=== PATIENT | female | born 1980 | race Hispanic/Latino ===

== ENCOUNTER 2016-02-28 17:27 | Emergency (ER) ==
[2016-02-28] MEDS ORDERED: NORCO-10 PO ONE (19:21)
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
[2016-02-28 20:39] VITALS: BP 160/80
--- NOTE | 2016-02-29 08:24 | Diag Imaging Result Document ---
PROCEDURE NAME: HEAD W/O CONTRAST - 02/28/2016 CT HEAD WITHOUT CONTRAST: A dose-reduction protocol was use. COMPARISON: No comparison exam. FINDINGS: There is no evidence of intracranial hemorrhage, mass effect, midline shift, or hydrocephalus. There is no evidence of infarct, although acute infarcts may not be immediately visible. There is no evidence of skull fracture. There is a small amount of fluid noted in the bilateral maxillary sinuses and the sphenoid sinus. IMPRESSION: 1. No evidence of intracranial injury. No intracranial hemorrhage or mass effect. 2. Small amount of fluid in bilateral maxillary sinuses and sphenoid sinus.
--- NOTE | 2016-02-29 08:25 | Diag Imaging Result Document ---
PROCEDURE NAME: PELVIS - 02/28/2016 PELVIS: COMPARISON: None. FINDINGS: Bones are intact and normally aligned. Joint spaces and soft tissues are clear. IMPRESSION: Negative exam.
--- NOTE | 2016-02-29 08:26 | Diag Imaging Result Document ---
PROCEDURE NAME: HAND COMPLETE LEFT - 02/28/2016 X-RAY LEFT HAND 3 VIEWS, 02/28/2016: COMPARISON: None. FINDINGS: Bones are intact and normally aligned. Joint spaces and soft tissues are clear. IMPRESSION: Negative exam.
--- NOTE | 2016-02-29 08:26 | Diag Imaging Result Document ---
PROCEDURE NAME: CHEST-2 VIEWS - 02/28/2016 CHEST X-RAY, 2 VIEWS: COMPARISON: None. FINDINGS: The lungs are normally expanded and clear. Heart size and mediastinal contours are normal. No pneumothorax or pleural effusion. IMPRESSION: Negative exam.
--- NOTE | 2016-02-29 08:28 | Diag Imaging Result Document ---
PROCEDURE NAME: SHOULDER-LEFT - 02/28/2016 X-RAY LEFT SHOULDER 3 VIEWS, 02/28/2016: COMPARISON: None. FINDINGS: Bones are intact and normally aligned. Joint spaces and soft tissues are clear. IMPRESSION: Negative exam.
== END 2016-02-28 20:39 | disposition home or self-care (01) ==
LOC: EDBD → ED 17:27
DX: S40.012A Contusion of left shoulder, initial encounter (principal); S60.222A Contusion of left hand, initial encounter; S13.4XXA Sprain of ligaments of cervical spine, initial encounter; R07.89 Other chest pain; T14.90 Injury, unspecified; R51 Headache; M25.512 Pain in left shoulder; M79.642 Pain in left hand; M79.89 Other specified soft tissue disorders; R68.84 Jaw pain; M79.1 Myalgia; E78.5 Hyperlipidemia, unspecified; R10.30 Lower abdominal pain, unspecified; V49.40XA Driver injured in collision with unspecified motor vehicles in traffic accident, initial encounter
CPT/HCPCS: 70450; 71020; 72170; 81025